=== PATIENT | male | born 1985 | race Caucasian/White ===

== ENCOUNTER 2021-10-02 00:58 | Emergency (ER) | payer MEDICAID ==
[~2021-10-02] VITALS: Ht 182.9 cm; Wt 77.7 kg
[2021-10-02 01:09] VITALS: BP 145/94
[2021-10-02] MEDS ORDERED: ACETAMINOPHEN EXTRA STRENGTH 500 MG TAB PO ONE (02:15)
[2021-10-02 03:25] VITALS: BP 123/75
--- NOTE | 2021-10-02 03:26 | NUR ---
Patient discharged with v/s stable. Written and verbal after care instructions given and explained. Patient verbalized understanding. Ambulatory with steady gait. All questions addressed prior to discharge. Advised to follow up with PMD.
--- NOTE | 2021-10-02 03:27 | NUR ---
Patient given written and verbal discharge instructions and verbalizes understanding. Given copies of tests performed during visit. Patient is awake, alert and oriented. Ambulatory with steady gait. Refuses offer of detention placement. Given list of available shelters in surrounding areas.
== END 2021-10-02 03:25 | disposition home or self-care (01) ==
LOC: MED 00:58
DX: R51.9 Headache, unspecified (principal)
CPT/HCPCS: 99282